=== PATIENT | female | born 2000 | race Caucasian/White ===

== ENCOUNTER 2021-02-28 16:51 | Emergency (ER) | payer SELFPAY ==
--- NOTE | ~2021-02-28 | CT_ITS ---
EXAMINATION: CT abdomen pelvis w con EXAM DATE: 02/28/2021 18:56 INDICATION: Low back pain radiating to abdomen. Nausea. TECHNIQUE: Spiral CT of the abdomen and pelvis was performed following intravenous injection of 100 m L Omnipaque 350. Axial, coronal and sagittal images of the abdomen and pelvis were reviewed. The do se-length product (DLP) for this examination was 261.95 mGy-cm. The exposure was tailored according to patient size (auto mA exposure control), and iterative reconstruction (ASIR) was used as additiona l dose reduction technique. There is no prior study for comparison. FINDINGS: The liver, spleen, adrenal glands and pancreas are unremarkable. Gallbladder is unremarkab le. No biliary obstruction. Portal and splenic veins are patent. Kidneys enhance symmetrically. T here is no hydronephrosis. Uterus is anteverted with evidence of recently ruptured left ovarian phy siologic or hemorrhagic cyst. The bladder is unremarkable. There is no retroperitoneal or pelvic ly mphadenopathy. The appendix is normal. The stomach and small bowel are unremarkable. There is expected amount of c olonic stool. No free intraperitoneal gas. The heart is normal in size. There are no pericardial or pleural effusions. The lung bases are unremarkable. Mild thoracic dextrocurvature lumbar levocu rvature. IMPRESSION: 1. Involuting left ovarian follicle probably recently ruptured cyst. 2. Normal appendix. Reviewed, dictated and finalized at location A.
[2021-02-28 16:54] VITALS: BP 142/82; PULSE 112; RESP 20; TEMP 36.6; O2SAT 99
[2021-02-28 17:18] LABS: Basophils Percent Auto 0.3 % (0.2-1.2); Eosinophils Absolute Auto 0.1 K/mm3 (0-0.3); Eosinophils Percent Auto 0.8 % (0-4.4); Hematocrit 41.8 % (37.0-47.0); Hemoglobin 13.4 g/dL (12.0-15.0); Immature Granulocyte Absolute 0.03 K/mm3 (0.00-0.031); Immature Granulocyte Percent A 0.3 % (0-0.5); Lymphocytes Absolute Auto 2.21 K/mm3 (0.9-3.2); Lymphocytes Percent Auto 21.2 % (18.3-44.2); Mean Corpuscular HGB Conc 32.1 g/dl (32-36); Mean Corpuscular Hemoglobin 28.9 pg (26-34); Mean Corpuscular Volume 90.3 fl (80-100); Mean Platelet Volume 9.9 fl (7.4-10.4); Monocytes Absolute Auto 0.9 K/mm3 (0.1-0.6); Monocytes Percent Auto 8.3 % (2.6-8.5); Neutrophils Absolute Auto 7.2 K/mm3 (1.3-6.7); Neutrophils Percent Auto 69.1 % (45.5-73.1); Platelet Count Result 309 k/mm3 (150-375); Red Blood Count 4.63 M/mm3 (4.2-5.4); Red Cell Distribution Width 12.6 % (11.5-14.5); White Blood Count 10.4 K/mm3 (4.5-10.0)
[2021-02-28 17:24] LABS: Add Urine Microscopic? YES; Appearance Urine Clear (Clear); Bacteria Urine Trace /hpf; Bilirubin Urine Negative (Negative); Blood Urine Negative (Negative); Color Urine Amber (Yellow); Glucose Urine UA Negative (Negative); Ketones Urine Negative (Negative); Leukocyte Esterase Ur Negative LEU/UL (Negative); Nitrate Urine Negative (Negative); Protein Urine Negative (Negative); RBC Urine 0-2 /hpf (0-2); Specific Grav Ur 1.009 (1.001-1.035); Urobilinogen Urine Negative mg/dL (<2.0); WBC Urine 0-3 /hpf
[2021-02-28 17:29] LABS: Alanine Aminotransferase 15 U/L (4-35); Alkaline Phosphatase 89 U/L (38-126); Anion Gap 11 mmol/L (8-16); Aspartate Amino Transferase 28 U/L (14-36); Bilirubin,Total 0.3 mg/dL (0.2-1.3); Blood Urea Nitrogen 13 mg/dL (7-17); Calcium 9.8 mg/dL (8.4-10.2); Carbon Dioxide 25 mmol/L (22-30); Chloride 105 mmol/L (98-107); Estimated CRCL calculation 100 ml/min; Estimated Glomerular Filt Rate > 60; Glucose 96 mg/dL (65-105); Lipase 148 U/L (23-300); Potassium 3.7 mmol/L (3.4-5.0); Sodium 141 mmol/L (137-145)
--- NOTE | 2021-02-28 17:32 | ED.GENADULT ---
HPI - General Adult General Chief complaint: Abdominal Pain <Felix Estrada PA-C - Last Filed: 02/28/21 19:37> Stated complaint: Abd pain <Felix Estrada PA-C - Last Filed: 02/28/21 19:37> Time Seen by Provider: 02/28/21 16:58 <Felix Estrada PA-C - Last Filed: 02/28/21 19:37> Source: patient, family and RN notes reviewed <Felix Estrada PA-C - Last Filed: 02/28/21 19:37> Mode of arrival: ambulatory <Felix Estrada PA-C - Last Filed: 02/28/21 19:37> Limitations: no limitations <Felix Estrada PA-C - Last Filed: 02/28/21 19:37> History of Present Illness HPI narrative: Patient is a 20-year-old female who presents with urinary frequency and urgency for the last couple of days was seen by primary care today referred to emergency department for further evaluation. Patient has had nausea denies emesis or fever or other complaints or similar occurrence or sick contacts. Patient has not taken anything for symptoms and presents in no distress patient denies any vaginal complaints. Patient notes she has had some loose stools over the last couple of days <Felix Estrada PA-C - Last Filed: 02/28/21 19:37> Related Data Allergies/adverse reactions: Allergies Allergy/AdvReac Type Severity Reaction Status Date / Time No Known Allergies Allergy Mild Unverified 09/17/12 12:21 <Felix Estrada PA-C - Last Filed: 02/28/21 19:37> Review of Systems Review of Systems: All systems reviewed & are unremarkable except as noted in HPI and below <Felix Estrada PA-C - Last Filed: 02/28/21 19:37> PMFSH Social History Social History: Social History (Updated 02/28/21 @ 17:33 by Felix Estrada PA-C) Smoking status: Never smoker <Felix Estrada PA-C - Last Filed: 02/28/21 19:37> Exam Narrative: Exam Narrative: GENERAL: Well-appearing, well-nourished, and in no acute distress. HEAD: Normocephalic, atraumatic. EYES: PERRLA and EOMI. ENT: Nares clear, no rhinorrhea or epistaxis. Mucous membranes moist. CHEST: Clear to auscultation. No respiratory distress. No wheezes rales or rhonchi HEART: Regular rate and rhythm. No murmur heard. Normal peripheral pulses. ABDOMEN: Soft, nontender, nondistended EXTREMITIES: Normal range of motion. No edema. SKIN: Warm, dry, no rash. NEURO: No focal deficits. Alert and oriented x3. PSYCH: Normal mood and affect. <Felix Estrada PA-C - Last Filed: 02/28/21 19:37> Course Course Emergency Course: Patient in the room at this time in no distress no concerning findings on imaging likely an ovarian cyst as the etiology for her pain will be sent back to primary care and gynecology for further evaluation felt appropriate for outpatient reevaluation <Felix Estrada PA-C - Last Filed: 02/28/21 19:37> Vital Signs Vital signs: Vital Signs Temperature 97.8 F 02/28/21 16:54 Pulse Rate 112 H 02/28/21 16:54 Respiratory Rate 20 02/28/21 16:54 Blood Pressure 142/82 H 02/28/21 16:54 Pulse Oximetry 99 02/28/21 16:54 Temperature 97.8 F 02/28/21 16:54 Pulse Rate 112 H 02/28/21 16:54 Respiratory Rate 20 02/28/21 16:54 Blood Pressure 142/82 H 02/28/21 16:54 Pulse Oximetry 99 02/28/21 16:54 <Felix Estrada PA-C - Last Filed: 02/28/21 19:37> Vital Signs Temperature 97.8 F 02/28/21 16:54 Pulse Rate 112 H 02/28/21 16:54 Respiratory Rate 20 02/28/21 16:54 Blood Pressure 142/82 H 02/28/21 16:54 Pulse Oximetry 99 02/28/21 16:54 Temperature 97.8 F 02/28/21 16:54 Pulse Rate 112 H 02/28/21 16:54 Respiratory Rate 20 02/28/21 16:54 Blood Pressure 142/82 H 02/28/21 16:54 Pulse Oximetry 99 02/28/21 16:54 <Martina Poole MD - Last Filed: 02/28/21 20:20> Medical Decision Making MDM Narrative Medical decision making narrative: Patient presented with abdominal pain from primary care no urinary tract infection afebrile nontoxic-appearing no di
[2021-02-28 20:23] VITALS: BP 130/83; PULSE 101; RESP 20; TEMP 36.8; O2SAT 99
== END 2021-02-28 20:25 | disposition home or self-care (01) ==
PROVIDERS: Emergency Medicine; Emergency Medicine Emergency Medical Services; Emergency Provider General Practice; PCP Emergency Medicine
DX: R10.9 Unspecified abdominal pain (principal); R35.0 Frequency of micturition; R39.15 Urgency of urination
CPT/HCPCS: 36415; 74177; 80053; 81001; 81025; 83690; 85025; 87070; 87491; 87591; 87808; 99284; Q9967